=== PATIENT | female | born 1995 | race African-American/Black ===

== ENCOUNTER 2020-05-24 02:57 | Day surgery (SDC) | payer MEDICAID, OTHER ==
[2020-05-24 03:39] VITALS: BMI 40.6
[2020-05-24] MEDS ORDERED: hydrALAZINE 20 MG/ML VIAL SLOW IVP PRN (04:28)
[2020-05-24 05:13] LABS: Bilirubin Neg (Negative); Blood, Urine Negative (Negative); Glucose, Urine (Dipstick) Normal (Negative); Ketone, Urine 5 mg/dL (Negative); Leukocyte Negative (Negative); Nitrite Negative (Negative); Protein, Urine (Dipstick) Negative (Neg-Trace); Urobilinogen Normal mg/dL (Less than 2)
[2020-05-24] MEDS ORDERED: Lactated Ringer's 1,000 ML IV SCH (05:15)
[2020-05-24 05:23] LABS: Clarity Clear (Clear)
[2020-05-24 05:24] LABS: Bacteria/HPF Rare-Few HPF (None Seen); RBC/HPF 0-3 HPF (0-3); Transitional Epithelial 0-3 HPF (None Seen); WBC/HPF 0-3 HPF (0-3)
[2020-05-24 05:41] LABS: FFN Internal QC Analyzer PASS (PASS); FFN Internal QC Cassette PASS (PASS); Fetal Fibronectin Negative (Negative)
== END 2020-05-24 06:10 | disposition home or self-care (01) ==
LOC: CSHLD/OP 02:57
PROVIDERS: ATTEND Obstetrics & Gynecology
DX: O99.891 Other specified diseases and conditions complicating pregnancy (principal); R10.30 Lower abdominal pain, unspecified; M54.5 Low back pain; Z3A.31 31 weeks gestation of pregnancy
CPT/HCPCS: 76815; 81001; 82731; 87086; 96360; 99284